=== PATIENT | male | born 1980 | race Caucasian/White ===

== ENCOUNTER 2017-04-02 00:21 | Emergency (ER) | payer MEDICAID ==
[~2017-04-02] VITALS: Ht 190.5 cm; Wt 86.2 kg
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
--- NOTE | 2017-04-02 00:30 | NUR ---
Dr Phelan at bedside to eval.
--- NOTE | 2017-04-02 00:34 | NUR ---
lapd at bedside.
--- NOTE | 2017-04-02 01:42 | NUR ---
back from radiology.
--- NOTE | 2017-04-02 02:20 | NUR ---
Patient refused to be discharged at this time, demanding for blood work to be done. Dr Phelan notified and said, "there was no indication for blood work." Patient began to curse, appears irritable, aggitated, speaking in loud voice. Nurse unable to speak with patient further. TG Grijalva and Dr Phelan made aware.
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
--- NOTE | 2017-04-02 02:30 | NUR ---
Araceli, varnish supervisor, at bedside talking to the patient.
--- NOTE | 2017-04-02 03:18 | NUR ---
contract lead at bedside to draw blood.
--- NOTE | 2017-04-02 03:49 | NUR ---
Patient discharged to home in stable condition. Written and verbal after care instructions given. Patient verbalizes understanding of instruction. However, patient refused to sign summary of exit care for hospital copy. Patient is ambulatory with a steady gait, accompanied by friends. Nad noted. VSS.
[2017-04-02 04:04] VITALS: BP 125/74
== END 2017-04-02 04:00 | disposition home or self-care (01) ==
LOC: ER 00:24
DX: S02.5XXA Fracture of tooth (traumatic), initial encounter for closed fracture (principal); S09.8XXA Other specified injuries of head, initial encounter; Y04.8XXA Assault by other bodily force, initial encounter; Y93.89 Activity, other specified; Y92.89 Other specified places as the place of occurrence of the external cause; Y99.8 Other external cause status
CPT/HCPCS: 36415; 70450; 72125; 73130; 73564 ×2; 86706; 86803; 99285; A4606; A6402 ×2; A6403; L0172; Z7610